=== PATIENT | female | born 1955 | race Caucasian/White ===

== ENCOUNTER → 2016-11-16 | Outpatient (CLI) | payer BC ==
[2013-05-28 14:02] VITALS: BP 148/85
--- NOTE | 2016-11-16 12:34 | RAD ---
HISTORY: Pain Study: Right shoulder series Comparison: None Findings: The appearance of the clavicle and AC joint are unremarkable. The glenohumeral articulation is madai l in its appearance. No acute cortical disruption or dislocation can be identified. The visualized portions of the scapula are unremarkable. In addition, the visualized portions of the chest appear u nremarkable. the bones are osteopenic. There are mild hypertrophic changes of the AC joint. IMPRESSION: Hypertrophic changes of the AC joint and osteopenia with no acute bony abnormality seen. Reported By:
== END | disposition home or self-care (01) | DRG 556 ==
LOC: RAD 10:55
PROVIDERS: ATTEND Internal Medicine
DX: M25.511 Pain in right shoulder (principal); M85.811 Other specified disorders of bone density and structure, right shoulder
CPT/HCPCS: 73030

== ENCOUNTER → 2016-11-22 | Outpatient (CLI) | payer BC ==
[2013-05-28 14:02] VITALS: BP 148/85
--- NOTE | 2016-11-22 17:09 | MRI ---
MRI right shoulder without contrast Indication: Right shoulder pain and stiffness. Comparison: Radiographs 11/16/2016 Technique: Multiplanar, multisequence MR images of the right shoulder were obtained without contrast. Findings: The marrow signal and bony alignment are within normal limits, without evidence for acute f racture or subluxation. There are mild degenerative changes of the AC joint with a type 2 acromion, w ithout significant cuff encroachment. There is trace fluid within the subacromial/subdeltoid bursa. T he distal supraspinatus and infraspinatus tendons are thickened with intermediate signal, consistent tendinosis. There is focal bursal sided irregularity of the leading edge distal supraspinatus tendon, suggesting partial tear. There is also high-grade undersurface tear of the superior subscapularis te ndon, without marked subluxation of the long head biceps tendon. The teres minor is intact. There is mild diffuse glenohumeral chondrosis, without full-thickness chondral defect. There is degen erative fraying/tear of the superior labrum. The remaining labrum is otherwise grossly intact. There is some minimally increased intrasubstance signal of the intra-articular biceps tendon, consistent wi th tendinosis. No significant muscle atrophy. Impression: 1. High-grade partial undersurface tear of the superior subscapularis and probable partial bursal jose ed tear of the leading edge distal supraspinatus tendon. Supraspinatus, infraspinatus, and intra-kevin cular biceps tendinosis. 2. Mild AC joint DJD, subacromial/subdeltoid bursitis. 3. Degenerative fraying/tear of the superior labrum. Reported By:
== END | disposition home or self-care (01) ==
LOC: RAD 12:51
PROVIDERS: ATTEND Internal Medicine
DX: M25.511 Pain in right shoulder (principal); S46.811A Strain of other muscles, fascia and tendons at shoulder and upper arm level, right arm, initial encounter; X58.XXXA Exposure to other specified factors, initial encounter; M19.011 Primary osteoarthritis, right shoulder; M75.51 Bursitis of right shoulder
CPT/HCPCS: 73221